=== PATIENT | male | born 1990 ===

== ENCOUNTER 2018-07-04 14:51 | Emergency (ER) | payer BC, OTHER ==
[2018-07-04 14:51] VITALS: BMI 24.4
[2018-07-04 15:15] VITALS: TEMP 98.5
[2018-07-04] MEDS ORDERED: Sodium Chloride 0.9% 1,000 ML IV STA (16:09)
--- NOTE | 2018-07-04 16:23 | ED PDOC ---
Arrival/HPI - General Chief Complaint: Abdominal Pain Time Seen by Provider: 07/04/18 16:05 Historian: Patient - History of Present Illness Narrative History of Present Illness (Text): 07/04/18 16:00 This 27 yo male with pmh kidney stones, presents to this ED with parents c/o right flank pain x 8 hours. Patient stated pain resembles when he was diagnose with kidney stones x 3 years ago. Patient stated pain is constant, and radiates to right groin. Patient denies fever, n/v, dizziness, testicular pain , or urinary. Time/Duration: Other (see hpi) Context: Home Past Medical History - Provider Review Nursing Documentation Reviewed: Yes - Infectious Disease Hx of Infectious Diseases: None - Tetanus Immunization Tetanus Immunization: Unknown - Past Medical History Past Medical History: No Previous - Cardiac Hx Cardiac Disorders: No - Pulmonary Hx Respiratory Disorders: No Hx Bronchitis: No - Neurological Hx Neurological Disorder: No Hx Seizures: No - HEENT Hx HEENT Disorder: No - Renal Hx Kidney Stones: Yes - Endocrine/Metabolic Hx Endocrine Disorders: No - Hematological/Oncological Hx Blood Disorders: No Hx Anemia: No - Integumentary Hx Dermatological Disorder: No - Musculoskeletal/Rheumatological Hx Arthritis: No - Gastrointestinal Hx Gastrointestinal Disorders: No Hx Gastrointestinal Ulcer: Yes - Genitourinary/Gynecological Hx Genitourinary Disorders: No - Psychiatric Hx Depression: No Hx Emotional Abuse: No Hx Physical Abuse: No Hx Substance Use: No - Past Surgical History Past Surgical History: No Previous - Anesthesia Hx Anesthesia: No Hx Anesthesia Reactions: No Hx Malignant Hyperthermia: No - Suicidal Assessment Feels Threatened In Home Enviroment: No Family/Social History - Physician Review Nursing Documentation Reviewed: Yes Family/Social History: Other (noncontributory) Smoking Status: Never Smoked Hx Alcohol Use: Yes Frequency of alcohol use: Socially Hx Substance Use: No Hx Substance Use Treatment: No Allergies/Home Meds Allergies/Adverse Reactions: Allergies No Known Allergies Allergy (Verified 04/07/15 22:52) Review of Systems - Review of Systems Constitutional: Normal. absent: Fatigue, Weight Change, Fevers, Night Sweats Eyes: Normal ENT: Normal Respiratory: Normal Cardiovascular: Normal Gastrointestinal: Other (right flank pain) Genitourinary Male: Normal Musculoskeletal: Normal Skin: Normal Neurological: Normal Endocrine: Normal Hemo/Lymphatic: Normal Psychiatric: Normal Physical Exam Vital Signs Temp Pulse Resp BP Pulse Ox 07/04/18 15:11 98.5 F 63 16 123/66 99 Temperature: Afebrile Blood Pressure: Normal Pulse: Regular Respiratory Rate: Normal Appearance: Positive for: Well-Appearing, Non-Toxic, Comfortable Pain Distress: None Mental Status: Positive for: Alert and Oriented X 3 - Systems Exam Head: Present: Atraumatic, Normocephalic Pupils: Present: PERRL Extroacular Muscles: Present: EOMI Conjunctiva: Present: Normal Mouth: Present: Moist Mucous Membranes Neck: Present: Normal Range of Motion Respiratory/Chest: Present: Clear to Auscultation, Good Air Exchange. No: Respiratory Distress, Accessory Muscle Use Cardiovascular: Present: Regular Rate and Rhythm, Normal S1, S2. No: Murmurs Abdomen: Present: Normal Bowel Sounds. No: Tenderness, Distention, Peritoneal Signs, Rebound, Guarding Back: Present: Normal Inspection. No: CVA Tenderness Upper Extremity: Present: Normal Inspection, NORMAL PULSES. No: Cyanosis, Edema , Normal ROM Lower Extremity: Present: Normal Inspection, NORMAL PULSES, Normal ROM. No: Edema Neurological: Present: GCS=15, CN II-XII Intact, Speech Normal, Motor Func Grossly Intact, Normal Sensory Function, Normal Cerebellar Funct, Gait Normal, Memory Normal Skin: Present: Warm, Dry, Normal Color. No: Rashes Psychiatric: Present: Alert, Oriented x 3, Normal Insight, Normal Concentration Medical Decision Making ED Course and Treatment: 07/04/18 17:20 Re-evaluation. Patient feels better. Discussed results and plan with patient who expresses understanding. All questions answered and there is agreement with the plan to discharge home with instructions. Patient stable for discharge. Return if symptoms persist or worsen. Patient came c/o right flank pain. Patient Re-evaluation Time: 17:20 Reassessment Condition: Re-examined, Improved - Lab Interpretations Lab Results: 07/04/18 16:05 07/04/18 16:05 Lab Results 07/04/18 16:05: Urine Color Yellow, Urine Appearance Clear, Urine pH 6.5, Ur Specific Pollard 1.010, Urine Protein Negative, Urine Glucose (UA) Negative, Urine Ketones Negative, Urine Blood Large H, Urine Nitrate Negative, Urine Bilirubin Negative, Urine Urobilinogen 0.2, Ur Leukocyte Esterase Negative, Urine RBC 25 - 30, Urine WBC 1 - 3, Ur Epithelial Cells None, Urine Bacteria Many 07/04/18 16:05: Sodium 141, Potassium 4.0, Chloride 103, Carbon Dioxide 26, Anion Gap 16, BUN 15, Creatinine 0.9, Est GFR ( Amer) > 60, Est GFR (Non- Af Amer) > 60, Random Glucose 125 H, Calcium 10.2, Magnesium 1.9, Total Bilirubin 0.4, AST 29, ALT 25, Alkaline Phosphatase 56, Total Protein 7.8, Albumin 4.6, Globulin 3.2, Albumin/Globulin Ratio 1.5 07/04/18 16:05: WBC 9.4, RBC 5.21, Hgb 14.1, Hct 40.7 L, MCV 78.1 L, MCH 27.1, MCHC 34.6, RDW 12.7, Plt Count 258, MPV 9.3, Gran % 79.8 H, Lymph % (Auto) 11.3 L, Grady % (Auto) 8.7 H, Eos % (Auto) 0.1 L, Baso % (Auto) 0.1, Gran # 7.52 H, Lymph # (Auto) 1.1 L, Grady # (Auto) 0.8 H, Eos # (Auto) 0.0, Baso # (Auto) 0.01 I have reviewed the lab results: Yes Interpretation: No clinic. lab abnormalty - RAD Interpretation Narrative RAD Interpretations (Text): 07/04/18 17:19 PROCEDURE: CT Abdomen and Pelvis without intravenous contrast FINDINGS: LOWER THORAX: Unremarkable. LIVER: Unremarkable. No gross lesion or ductal dilatation. GALLBLADDER AND BILE DUCTS: Unremarkable. PANCREAS: Unremarkable. No gross lesion or ductal dilatation. SPLEEN: Unremarkable. ADRENALS: Unremarkable. No mass. KIDNEYS AND URETERS: There is a 4 mm stone in the right proximal ureter. There is mild hydronephrosis and hydroureter. Multiple small stones are seen in the periphery of both kidneys. VASCULATURE: Unremarkable. No aortic aneurysm. BOWEL: Unremarkable. No obstruction. No gross mural thickening. APPENDIX: Unremarkable. Normal appendix. PERITONEUM: Unremarkable. No free fluid. No free air. LYMPH NODES: Unremarkable. No enlarged lymph nodes. BLADDER: Unremarkable. REPRODUCTIVE: Unremarkable. BONES: No acute fracture. OTHER FINDINGS: None. IMPRESSION: 4 mm stone in the proximal right ureter with mild hydronephrosis. Bilateral nephrolithiasis Radiology Orders: 07/04/18 16:08 ABD & PELVIS W/O PO OR IV CONT [CT] Stat - Medication Orders Current Medication Orders: Discontinued Medications Sodium Chloride (Sodium Chloride 0.9%) 1,000 mls @ 999 mls/hr IV .Q1H1M STA Stop: 07/04/18 17:09 Last Admin: 07/04/18 16:20 Dose: 999 mls/hr eMAR Start Stop Document 07/04/18 16:20 EQ (Rec: 07/04/18 16:20 EQ [id number]) Intravenous Solution Start Date 07/04/18 Start Time 16:20 Ketorolac Tromethamine (Toradol) 30 mg IVP STAT STA Stop: 07/04/18 16:10 Last Admin: 07/04/18 16:21 Dose: 30 mg MAR Pain Assessment Document 07/04/18 16:21 EQ (Rec: 07/04/18 16:21 EQ [id number]) Pain Reassessment Is this a pain reassessment? No Sleep Is patient sleeping during reassessment? No Presence of Pain Presence of Pain Yes IVP Administration Document 07/04/18 16:21 EQ (Rec: 07/04/18 16:21 EQ [id number]) Charges for Administration # of IVP Administrations 1 Ondansetron HCl (Zofran Inj) 4 mg IVP STAT STA Stop: 07/04/18 17:22 Last Admin: 07/04/18 17:37 Dose: 4 mg IVP Administration Document 07/04/18 17:37 EQ (Rec: 07/04/18 17:37 EQ [id number]) Charges for Administration # of IVP Administrations 1 Oxycodone/Acetaminophen (Percocet 5/325 Mg Tab) 1 tab PO STAT STA Stop: 07/04/18 17:21 Last Admin: 07/04/18 17:37 Dose: 1 tab MAR Pain Assessment Document 07/04/18 17:37 EQ (Rec: 07/04/18 17:37 EQ [id number]) Pain Reassessment Is this a pain reassessment? No Sleep Is patient sleeping during reassessment? No Presence of Pain Presence of Pain Yes Disposition/Present on Arrival - Present on Arrival Any Indicators Present on Arrival: No History of DVT/PE: No History of Uncontrolled Diabetes: No Urinary Catheter: No History of Decub. Ulcer: No History Surgical Site Infection Following: None - Disposition Have Diagnosis and Disposition been Completed?: Yes Diagnosis: Renal and ureteric calculus Disposition: HOME/ ROUTINE Disposition Time: 17:48 Patient Plan: Discharge Patient Problems: Current Active Problems Problem Status Onset Renal and ureteric calculus Acute Condition: IMPROVED Discharge Instructions (ExitCare): Kidney Stones (DC) Additional Instructions: Call Dr. Wagner office for follow up visit in 1-2 days, Take medication as instructed with food. Drink plenty of fluids, and rest, Use urinary strainer. Return to emergency if symptoms worsen. Prescriptions: Naproxen 500 mg PO BID PRN #14 tablet PRN Reason: Pain, Severe (8-10) oxyCODONE/Acetaminophen [Percocet 5/325 mg Tab] 1 tab PO Q6H PRN #15 tab PRN Reason: Pain, Severe (8-10) Tamsulosin HCl [Flomax] 0.4 mg PO DAILY #7 cap.er.24h Referrals: Lasha Childress MD [Primary Care Provider] - Follow up with primary Agata Wagner MD [Staff Provider] - Follow up with primary Forms: [facility] ([place]), WORK NOTE
[2018-07-04 16:48] LABS: PH,URINE 6.5 (4.7-8.0); URINE BILIRUBIN NEGATIVE (NEGATIVE); URINE BLOOD LARGE (NEGATIVE); URINE GLUCOSE (UA) NEGATIVE (NEGATIVE); URINE LEUKOCYTE ESTERASE NEGATIVE Leu/uL (NEGATIVE); URINE PROTEIN NEGATIVE mg/dL (<30 mg/dL); URINE UROBILINOGEN 0.2 E.U./dL (<1 E.U./dL)
[2018-07-04 16:49] LABS: URINE APPEARANCE CLEAR (CLEAR); URINE COLOR YELLOW (YELLOW)
[2018-07-04 16:50] LABS: BASO # 0.01 K/mm3 (0.0-2.0); BASO % 0.1 % (0.0-3.0); EOS % 0.1 % (1.5-5.0); GRAN # 7.52 (1.4-6.5); GRAN % 79.8 % (50.0-68.0); HEMOGLOBIN 14.1 g/dL (14.0-18.0); LYMPH # 1.1 (1.2-3.4); LYMPH % 11.3 % (22.0-35.0); MEAN CELL VOLUME 78.1 fl (80.0-105.0); MEAN CORPUSCULAR HEMOGLOBIN 27.1 pg (25.0-35.0); MEAN CORPUSCULAR HGB CONC 34.6 g/dl (31.0-37.0); MEAN PLATELET VOLUME 9.3 fl (7.0-11.0); MONO # 0.8 (0.1-0.6); MONO % 8.7 % (1.0-6.0); RBC 5.21 10^6/uL (3.5-6.1); RED CELL DISTRIBUTION WIDTH 12.7 % (11.5-14.5); WHITE BLOOD COUNT 9.4 10^3/ul (4.5-11.0)
[2018-07-04 16:54] LABS: URINE BACTERIA MANY (NEG); URINE RBC 25 - 30 /hpf (0-2)
[2018-07-04 17:02] LABS: ALB/GLOB RATIO 1.5 (1.1-1.8); ALBUMIN 4.6 g/dL (3.0-4.8); ALT/SGPT 25 U/L (7-56); AST/SGOT 29 U/L (17-59); BLOOD UREA NITROGEN 15 mg/dL (7-21); CALCIUM 10.2 mg/dL (8.4-10.5); GFR AFRICAN-AMERICAN > 60; GFR NON-AFRICAN AMERICAN > 60
--- NOTE | 2018-07-04 17:05 | CT ---
Date of service: 07/04/2018 PROCEDURE: CT Abdomen and Pelvis without intravenous contrast HISTORY: right flank pain COMPARISON: None. TECHNIQUE: Without contrast. Contrast dose: Radiation dose: Total exam DLP = 407 mGy-cm. This CT exam was performed using one or more of the following dose reduction techniques: Automated exposure control, adjustment of the mA and/or kV according to patient size, and/or use of iterative reconstruction technique. FINDINGS: LOWER THORAX: Unremarkable. LIVER: Unremarkable. No gross lesion or ductal dilatation. GALLBLADDER AND BILE DUCTS: Unremarkable. PANCREAS: Unremarkable. No gross lesion or ductal dilatation. SPLEEN: Unremarkable. ADRENALS: Unremarkable. No mass. KIDNEYS AND URETERS: There is a 4 mm stone in the right proximal ureter. There is mild hydronephrosis and hydroureter. Multiple small stones are seen in the periphery of both kidneys. VASCULATURE: Unremarkable. No aortic aneurysm. BOWEL: Unremarkable. No obstruction. No gross mural thickening. APPENDIX: Unremarkable. Normal appendix. PERITONEUM: Unremarkable. No free fluid. No free air. LYMPH NODES: Unremarkable. No enlarged lymph nodes. BLADDER: Unremarkable. REPRODUCTIVE: Unremarkable. BONES: No acute fracture. OTHER FINDINGS: None. IMPRESSION: 4 mm stone in the proximal right ureter with mild hydronephrosis. Bilateral nephrolithiasis
[2018-07-04] MEDS ORDERED: Oxycodone/Acetaminophen 5/325 mg Tab PO STA (17:20)
[2018-07-04 18:49] VITALS: BP 128/71; PULSE 77; RESP 18; O2SAT 100
== END 2018-07-04 18:48 | disposition home or self-care (01) ==
LOC: ED 14:51
DX: N20.2 Calculus of kidney with calculus of ureter (principal)
CPT/HCPCS: 74176; 80053; 81001; 83735; 85025; 96374; 96375; 99283; J1885; J2405; J7030